=== PATIENT | female | born 1960 | race Caucasian/White ===

== ENCOUNTER → 2025-05-15 08:07 | Outpatient (REF) | payer MEDICARE, SELFPAY | LOC: HWRAD 08:07 | PROVIDERS: ATTENDING PHYSICIAN Nurse Practitioner Family | DX: Z12.31 Encounter for screening mammogram for malignant neoplasm of breast (principal); Z78.0 Asymptomatic menopausal state | CPT/HCPCS: 77063; 77067; 77080 ==